=== PATIENT | male | born 1990 | race Caucasian/White ===

== ENCOUNTER → 2020-08-18 | Outpatient (CLI) | payer OTHER | LOC: KOH-I 11:20 | DX: I83.91 Asymptomatic varicose veins of right lower extremity (principal) | CPT/HCPCS: 93971 ==

== ENCOUNTER → 2020-10-02 | Outpatient (CLI) | payer OTHER | LOC: HEART 5 13:09 | DX: I70.8 Atherosclerosis of other arteries (principal); I87.8 Other specified disorders of veins | CPT/HCPCS: 93970 ==

== ENCOUNTER → 2020-11-15 | Outpatient (CLI) | payer OTHER | LOC: EXRD 10:01 | DX: I73.9 Peripheral vascular disease, unspecified (principal); I87.1 Compression of vein | CPT/HCPCS: 93979 ==